=== PATIENT | female | born 2000 | race Caucasian/White ===

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

== ENCOUNTER 2019-01-11 10:57 | Emergency (ER) | payer OTHER ==
[~2019-01-11] VITALS: Ht 160 cm; Wt 86.2 kg
[2019-01-11 11:05] VITALS: BP 126/66
--- NOTE | 2019-01-11 11:05 | NUR ---
PT AMBULATES TO BED 5
--- NOTE | 2019-01-11 11:10 | NUR ---
14 WKS. GEST. . DENIES VAG. BLEEDING. PER PATIENT SEEN HER OB DOCTOR YESTERDAY. DENIES HX, TAKING VITAMINS. DENIES N/V/D; SKIN IS PINK/WARM/DRY; AAOX4 WITH EVEN AND STEADY GAIT; LUNGS CLEAR BL; HR EVEN AND REGULAR; PT DENIES ANY FEVER, CP, SOB, OR COUGH AT THIS TIME; PATIENT STATES PAIN OF 5/10 AT THIS TIME; VSS; PATIENT POSITIONED FOR COMFORT; HOB ELEVATED; BEDRAILS UP X2; BED DOWN. ER MD MADE AWARE OF PT STATUS.
--- NOTE | 2019-01-11 11:33 | NUR ---
Patient being evaluated by physician at bedside.
[2019-01-11 12:00] LABS: APPEARANCE,URINE SL CLOUDY (CLEAR); BILIRUBIN,URINE NEGATIVE (NEGATIVE); BLOOD, URINE NEGATIVE (NEGATIVE); COLOR,URINE YELLOW (YELLOW); LEUKOCYTE ESTERASE ,URINE 3+ (NEGATIVE); NITRITE, URINE NEGATIVE (NEGATIVE); UGLUCOSE NEGATIVE (NEGATIVE)
[2019-01-11 12:19] LABS: RBC,URINE 0-5 /HPF (0-5)
--- NOTE | 2019-01-11 13:13 | NUR ---
RECEIVED REPORT FROM WILLIAM DALEY.
[2019-01-11 13:55] VITALS: BP 107/48
== END 2019-01-11 13:55 | disposition home or self-care (01) ==
LOC: MED 10:57
DX: O23.41 Unspecified infection of urinary tract in pregnancy, first trimester (principal); R42 Dizziness and giddiness; Z88.0 Allergy status to penicillin; Z88.1 Allergy status to other antibiotic agents; Z79.899 Other long term (current) drug therapy
CPT/HCPCS: 76805; 81001; 81025; 87086; 99284; Q0092

== ENCOUNTER 2019-05-14 10:00 | Observation (INO) | payer OTHER ==
[~2019-05-14] VITALS: Ht 160 cm; Wt 96.6 kg
[2019-05-14] MEDS ORDERED: TERBUTALINE 1 MG/ML VIAL SUBQ SCH (10:40)
[2019-05-14] MEDS ORDERED: TERBUTALINE 1 MG/ML VIAL SUBQ ONE (11:11)
[2019-05-14 19:42] VITALS: BP 117/54
== END 2019-05-14 17:15 | disposition home or self-care (01) ==
LOC: MLD 10:00
PROVIDERS: ADMIT Obstetrics & Gynecology; ATTEND Obstetrics & Gynecology
DX: O26.893 Other specified pregnancy related conditions, third trimester (principal); N89.8 Other specified noninflammatory disorders of vagina; R10.9 Unspecified abdominal pain; O62.9 Abnormality of forces of labor, unspecified; Z3A.31 31 weeks gestation of pregnancy
CPT/HCPCS: 36415; 82731; 96372; G0378; J3105

== ENCOUNTER 2019-05-25 17:38 | Observation (INO) | payer OTHER ==
[~2019-05-25] VITALS: Ht 160 cm; Wt 97.1 kg
[~2019-05-25 17:38] MED LIST changes: -IBUP-974 PO
[2019-05-25 18:24] VITALS: BP 120/69
== END 2019-05-25 19:45 | disposition home or self-care (01) ==
LOC: MLD 17:38
PROVIDERS: ADMIT Obstetrics & Gynecology; ATTEND Obstetrics & Gynecology
DX: O99.89 Other specified diseases and conditions complicating pregnancy, childbirth and the puerperium (principal); M54.5 Low back pain; Z3A.00 Weeks of gestation of pregnancy not specified
CPT/HCPCS: 81000; G0378

== ENCOUNTER 2019-12-17 17:57 | Emergency (ER) | payer OTHER ==
[~2019-12-17] VITALS: Ht 157.5 cm; Wt 90.4 kg
[~2019-12-17 17:57] MED LIST changes: -FERR-212 PO; +PREN-380 PO; -PREN1SGL25 PO
[2019-12-17 17:58] VITALS: BP 120/81
--- NOTE | 2019-12-17 18:19 | NUR ---
19 Y/O F C/C LOW BACK PAIN X2 WEEKS RADIATING TO THE LOWER ABDOMEN, 10/10 PAIN; NAUSEA/DIARRHEA X 1 WEEK. PER PT UNKNOWN CAUSE FOR BACK PAIN, HAS NOT TAKEN MEDICATIONS AT HOME. PER PT ON AND OFF BURNING URINATION. PT ALLERGIES PNC,AMOXICILLIN. NO HX. NO RX. NO VOMITING. SIDE RAIL X1.
--- NOTE | 2019-12-17 19:16 | NUR ---
REPORT GIVEN TO KADE RN FOR CONTINUITY OF CARE
--- NOTE | 2019-12-17 19:16 | NUR ---
REPORT RECEIVED FROM WILLIAM HOOKER.
--- NOTE | 2019-12-17 20:03 | NUR ---
ERMD AT BEDSIDE EVALUATING PATIENT.
[2019-12-17] MEDS ORDERED: SULFAMETH/TRIMETH DS 800/160MG 1 TAB PO ONE (20:10)
[2019-12-17] MEDS ORDERED: ACETAMINOPHEN EXTRA STRENGTH 500 MG TAB PO ONE (20:10)
[2019-12-17] MEDS ORDERED: IBUPROFEN 400 MG TAB PO ONE (20:10)
--- NOTE | 2019-12-17 20:13 | NUR ---
URINE SAMPLE COLLECTED AND SENT TO LAB.
[2019-12-17 20:41] VITALS: BP 119/82
--- NOTE | 2019-12-17 20:41 | NUR ---
Note damon in EDM - 12/17/19 at 2045 by MAY Patient discharged with v/s stable. Written and verbal after care instructions given and explained to parent/guardian. Parent/Guardian verbalized understanding. PATIENT PRESCRIBED ZOFRAN FOR NAUSEA/VOMITING. EDUCATED MOTHER ON MEDICATION. Ambulatorysteady gait. All questions addressed prior to discharge. Advised to follow up with PMD.
== END 2019-12-17 20:41 | disposition home or self-care (01) ==
LOC: MED 17:57
DX: N12 Tubulo-interstitial nephritis, not specified as acute or chronic (principal); K21.9 Gastro-esophageal reflux disease without esophagitis; Z79.899 Other long term (current) drug therapy; Z88.0 Allergy status to penicillin; Z88.1 Allergy status to other antibiotic agents
CPT/HCPCS: 81002; 81025; 99284

== ENCOUNTER 2020-04-26 09:16 | Emergency (ER) | payer OTHER ==
[~2020-04-26] VITALS: Ht 160 cm; Wt 89.8 kg
[2020-04-26 09:19] VITALS: BP 118/65
[2020-04-26] MEDS ORDERED: ACETAMINOPHEN EXTRA STRENGTH 500 MG TAB PO ONE (11:25)
[2020-04-26] MEDS ORDERED: IBUPROFEN 600 MG TAB PO ONE (11:25)
[2020-04-26 11:40] VITALS: BP 118/65
== END 2020-04-26 11:40 | disposition home or self-care (01) ==
LOC: MED 09:16
DX: M54.5 Low back pain (principal)
CPT/HCPCS: 81002; 81025; 99283

== ENCOUNTER 2020-05-16 10:58 | Emergency (ER) | payer OTHER, SELFPAY ==
[~2020-05-16] VITALS: Ht 160 cm; Wt 87.5 kg
[2020-05-16 11:13] VITALS: BP 122/82
--- NOTE | 2020-05-16 11:20 | NUR ---
COVID SWAB DONE.
--- NOTE | 2020-05-16 11:24 | NUR ---
PT AMBULATED TO ER BED 09
[2020-05-16] MEDS ORDERED: ACETAMINOPHEN 325 MG TAB PO ONE (11:50)
[2020-05-16] MEDS ORDERED: IBUPROFEN 400 MG TAB PO ONE (11:50)
[2020-05-16 12:12] LABS: BASOPHILS % (AUTO) 0.4 % (0.0-2.0); EOSINOPHILS % (AUTO) 0.5 % (0.0-4.0); HEMATOCRIT 42.3 % (36-48); LYMPHOCYTES # (AUTO) 1.3 K/uL (2.5-16.5); LYMPHOCYTES % (AUTO) 31.5 % (20.5-51.1); MEAN CORPUSCULAR HEMOGLOBIN 30 pg (27-31); MEAN CORPUSCULAR HGB CONC 33 g/dL (33-37); MEAN CORPUSCULAR VOLUME 91.3 fL (80-94); MONOCYTES # (AUTO) 0.4 K/uL (0.8-1.0); MONOCYTES % (AUTO) 10.3 % (1.7-9.3); NEUTROPHILS # (AUTO) 2.4 K/uL (1.8-7.7); NEUTROPHILS % (AUTO) 57.3 % (42.2-75.2); PLATELET COUNT (AUTO) 140 K/uL (140-450); RED BLOOD CELL COUNT(AUTO) 4.63 MIL/uL (4.20-5.40); RED CELL DISTRIBUTION WIDTH 13.2 % (11.6-13.7); WHITE BLOOD COUNT (AUTO) 4.1 K/uL (4.8-10.8)
--- NOTE | 2020-05-16 12:38 | NUR ---
PO MEDS GIVEN-NADR AT THIS TIME
[2020-05-16 12:41] LABS: ANION GAP 16.3 (8-16); CARBON DIOXIDE 23.4 mmol/L (21-32); CREATININE 0.7 mg/dL (0.6-1.3); POTASSIUM 3.7 mmol/L (3.5-5.1)
--- NOTE | 2020-05-16 13:21 | NUR ---
20 Y/O FEMALE FROM HOME C/O GENERALIZED BODY ACHES AND CHEST PAIN X 2 WKS. DENIES SOB/COUGH. RR EVEN AND UNLABORED. STATES LOSS OF TASTES STARTING THIS MORNING. DENIES N/V/D. AWAKE AND ALERT. SKIN WARM AND DRY TO TOUCH. VSS
[2020-05-16 13:23] VITALS: BP 122/82
--- NOTE | 2020-05-17 17:41 | NUR ---
COVID-19 RESULT POSITIVE, COPY OF RESULTS WILL BE GIVEN TO DAMION AT INFECTION CONTROL
== END 2020-05-16 13:22 | disposition home or self-care (01) ==
LOC: MED 10:58
DX: U07.1 COVID-19 (principal); B34.9 Viral infection, unspecified; F41.0 Panic disorder [episodic paroxysmal anxiety]; Z88.0 Allergy status to penicillin; Z88.1 Allergy status to other antibiotic agents; Z79.899 Other long term (current) drug therapy
CPT/HCPCS: 36415; 71045; 80048; 85025; 93005; 99285; Q0092; U0003

== ENCOUNTER 2020-08-25 23:52 | Emergency (ER) | payer OTHER, SELFPAY ==
[~2020-08-25] VITALS: Ht 160 cm; Wt 88.5 kg
[2020-08-25 23:58] VITALS: BP 112/67
--- NOTE | 2020-08-26 00:03 | NUR ---
ERMD at bedside for medical evaluation.
--- NOTE | 2020-08-26 00:10 | NUR ---
Pt ambulated from bedroom to bathroom, pt has a steady gait.
--- NOTE | 2020-08-26 00:14 | NUR ---
Pt ambulated back to bed from restroom.
--- NOTE | 2020-08-26 00:15 | NUR ---
20 Y/O FEMALE PRESENTED TO THE ED C/O VAGINAL BLEEDING SINCE 08-23-2020 AND ABDOMNIAL PAIN THAT IS 8/10. PT DESCRIBES BLEEDING THAT HAS CLOTS, PT STATES LAST MENSTRUAL PERIOD WAS 3 MONTHS AGO. PT ON DEPO-SHOT FOR CONTROL AND WILL GO IN FOR HER NEXT DOSE AT THE END OF THIS MONTH. PT DENIES TAKING ANY MEDICATION TODAY. PT DENIES ALCOHOL OR DRUG USE. PT LAYING DOWN IN BED, PT IS NOT IN ANY ACUTE DISTRESS AT THIS TIME, BED IS LOCKED AND IN LOWEST POSITION, SIDE RAILSX1 PMH: DENIES NKA
--- NOTE | 2020-08-26 00:21 | NUR ---
Urine specimen handed over to lab
[2020-08-26 00:44] LABS: APPEARANCE,URINE CLOUDY (CLEAR); BILIRUBIN,URINE 1+ (NEGATIVE); BLOOD, URINE 3+ (NEGATIVE); LEUKOCYTE ESTERASE ,URINE TRACE (NEGATIVE); NITRITE, URINE NEGATIVE (NEGATIVE); UGLUCOSE NEGATIVE (NEGATIVE)
[2020-08-26 00:47] LABS: COLOR,URINE BLOODY (YELLOW)
--- NOTE | 2020-08-26 00:48 | NUR ---
Pt ambulated to bathroom with steady gait
--- NOTE | 2020-08-26 00:50 | NUR ---
Pt ambulated back to bed 5, reconnected to the monitor
[2020-08-26 00:57] LABS: RBC,URINE TOO NUMEROUS TO COUN /HPF (0-5); WBC,URINE 0-5 /HPF (0-5)
[2020-08-26] MEDS ORDERED: KETOROLAC 30 MG/ML VIAL IM ONE ×2 (01:40→02:05)
[2020-08-26] MEDS ORDERED: PHENAZOPYRIDINE 100 MG TAB PO ONE ×2 (01:40→02:05)
[2020-08-26] MEDS ORDERED: cefTRIAXone 1,000 MG in LIDOCAINE MPF 1% 2.1 ML IM ONE ×2 (01:40→02:05)
--- NOTE | 2020-08-26 02:00 | NUR ---
PT IS SLEEPING, BED IS LOCKED AND IN LOWEST POSITION, VISIBLE RISE AND FALL OF CHEST NOTED, PT IS NOT IN ANY ACUTE DISTRESS AT THIS TIME. SIDE RAILS X1.
[2020-08-26] MEDS ORDERED: cefTRIAXone 1,000 MG VIAL ONE (02:08)
[2020-08-26] MEDS ORDERED: LIDOCAINE MPF 1% 5 ML ONE (02:09)
[2020-08-26 02:44] VITALS: BP 112/67
--- NOTE | 2020-08-26 02:44 | NUR ---
Patient discharged with v/s stable. Written and verbal after care instructions given and explained. Patient alert, oriented and verbalized understanding of instructions. Ambulatory with steady gait. All questions addressed prior to discharge. ID band removed. Patient advised to follow up with PMD. Rx of PYRIDIUM AND NITROFURANTOIN given. Patient educated on indication of medication including possible reaction and side effects. Opportunity to ask questions provided and answered.
== END 2020-08-26 02:44 | disposition home or self-care (01) ==
LOC: MED 23:52
DX: N39.0 Urinary tract infection, site not specified (principal); Z88.0 Allergy status to penicillin; Z88.1 Allergy status to other antibiotic agents; Z71.6 Tobacco abuse counseling; Z79.899 Other long term (current) drug therapy
CPT/HCPCS: 81001; 81025; 87086; 96372; 99284; J0696; J1885; J2001